=== PATIENT | male | born 1930 | race Caucasian/White ===

== ENCOUNTER 2016-07-26 01:59 | Inpatient (IN) | payer MEDICARE, OTHER ==
--- NOTE | ~2016-07-26 | CT71 ---
[facility] A Service of [facility] & [facility] RADIOLOGY TEXT RESULTS PATIENT: WILIAN MAYBERRY LOCATION: [facility] 563-01 : 29 UNIT #: [id number] AGE: [address]: Jose Manuel Ware MD SEX: M ORDER DR: [id number] [facility] [address] [place], [place] [address] [id number] I MR#: [id number] Acc #: [id number] NAME: WILIAN MAYBERRY : 1930 SEX: M STUDY DATE/TIME: 07/27/2016 12:39 UNIT: [facility] ROOM: [facility] STUDY DESCRIPTION: CT Head Wo Contrast Attending Physician: Jose Manuel Ware M.D. Ordering Physician: Jose Manuel Ware M.D. MEDICAL IMAGING REPORT This report is preliminary unless electronic signature is present EXAM CT of the head with contrast INDICATION Confusion starting this morning. Patient apparently fell last night and there is difficulty rousing him. TECHNIQUE Axial CT images were obtained from the vertex of the skull through the skull base. No intravenous contrast was administered. This CT exam was performed with one or more of the following radiation dose reduction techniques: automatic exposure control, adjustment of mA and/or kV according to patient size, and iterative reconstruction. FINDINGS No acute intracranial hemorrhage is identified. There is diffuse cerebral atrophy with compensatory ventricular dilatation which is in keeping with the age of 85. Patient does have some basal ganglia calcifications but I do not see any focal areas of decreased attenuation. Atherosclerotic involvement of the cavernous carotid and basilar arteries is noted. There is a soft tissue mass seen within the nasal cavity, that is relatively homogeneous in appearance on this unenhanced examination. It measures up to 2.8 x 1.7 cm and extends into the left ethmoid sinus, there is some mild mucosal thickening seen within the maxillary sinuses. Mastoid air cells appear clear. Additional mucosal thickening is seen within the sphenoid sinuses. IMPRESSION 1. No acute intracranial process identified. Specifically, there is no evidence of acute hemorrhage, mass lesion, or acute infarct. 2. This patient does have a soft tissue mass identified within the left nasal cavity extending up into the left ethmoid sinus. It measures up to 2.8 x 1.7 cm and is indeterminate on this unenhanced STS. [facility] A Service of [facility] RADIOLOGY TEXT RESULTS PATIENT: WILIAN MAYBERRY LOCATION: [facility] 563-01 : 29 UNIT #: [id number] AGE: [address]: Jose Manuel Ware MD SEX: M ORDER DR: examination. Further evaluation with CT of the head and neck with contrast is recommended. Dictated by... Miriam Pink M.D. THIS IS AN ELECTRONICALLY VERIFIED REPORT Miriam Pink M.D. at 08/02/2016 1:15 PM AFF/aa TD: 07/27/2016 14:09 JOB #: [id number] MEDICAL IMAGING REPORT COPY
--- NOTE | ~2016-07-26 | CR72 ---
[facility] A Service of [facility] RADIOLOGY TEXT RESULTS PATIENT: WILIAN MAYBERRY LOCATION: [facility] 56- : 29 UNIT #: [id number] AGE: [address]: Jose Manuel Ware MD SEX: M ORDER DR: [id number] [facility] [address]. [place], [place] [address] [id number] I MR#: [id number] Acc #: [id number] NAME: WILIAN MAYBERRY. : 1930 SEX: M STUDY DATE/TIME: 07/28/2016 5:16 UNIT: [facility] ROOM: [facility] STUDY DESCRIPTION: CR Chest Single View Portable Attending Physician: Jose Manuel Ware M.D. Ordering Physician: Jaime Ortega MEDICAL IMAGING REPORT This report is preliminary unless electronic signature is present EXAM AP portable chest date 07/28/2016 05:16 HISTORY Pneumonia. Cough. Congestion. Body aches. Symptoms began approximately 1 week ago. COMPARISON AP portable chest 07/26/2016. CT chest 07/26/2016. FINDINGS Stable cardiac enlargement with median sternotomy. Left chest wall pacemaker leads appear unchanged. Airspace disease throughout the periphery of the right mid, upper and lower lung zones and within the left base with probable trace bilateral pleural effusions, without significant change. The left chest wall pacemaker is stable. IMPRESSION 1. Airspace disease throughout the periphery the right lung and within the left lower lobe and probable small bilateral pleural effusions, without significant change from 07/26/2016. 2. Stable cardiomegaly and CABG. Dictated by... Alize Hurley M.D. THIS IS AN ELECTRONICALLY VERIFIED REPORT Alize Hurley M.D. at 07/29/2016 9:59 PM LLH/rnr TD: 07/28/2016 23:45 JOB #: [id number] [facility] A Service of [facility] RADIOLOGY TEXT RESULTS PATIENT: WILIAN MAYBERRY LOCATION: [facility] 563-01 : 29 UNIT #: [id number] AGE: [address]: Jose Manuel Ware MD SEX: M ORDER DR: MEDICAL IMAGING REPORT COPY
--- NOTE | ~2016-07-26 | CO ---
Unit #: [id number] #: [id number] Patient: WILIAN MAYBERRY [id number] [facility]. [place], [place] [address] [id number] I MR#: [id number] NAME: WILIAN MAYBERRY ROOM: 563 Age: 85 Sex: M Admission Date: 07/26/2016 : 1930 Attending Physician: Jose Manuel Ware M.D. Consultation Date: 07/27/2016 CONSULTATION REPORT HISTORY OF PRESENT ILLNESS This is an 85-year-old gentleman, who developed symptoms of the flu, was seen in ER 1 week ago and was given Tamiflu. The patient apparently took the entire amount the same day and then he was seen in [facility] where he was given Levaquin for suspected post flu pneumonia. The patient presented now to the [facility] ER with atrial fibrillation with RVR. Chest x-ray shows right-sided infiltrates. Flu swab continues to be positive. The patient is also hyponatremic likely dehydrated. The patient was given Cardizem and given Rocephin and azithromycin. The patient was later started on vancomycin for probable staph. The patient has a history of ischemic cardiomyopathy with ejection fraction 20%, atrial fibrillation, status post pacemaker. REVIEW OF SYSTEMS The patient is somewhat confused and is unable to give review of systems, but complained significantly of Valerio catheter and the need to urinate. PAST MEDICAL HISTORY Significant for ischemic cardiomyopathy with ejection fraction 20%, status post CABG, atrial fibrillation, sick sinus syndrome, permanent pacemaker, anticoagulated and on Coumadin. The patient has a history of hypertension. The patient has a history of an appendectomy. ALLERGIES The patient has no known drug allergies. HOME MEDICATIONS Includes 5 mg Coumadin daily, aspirin 81 mg daily, Tamiflu 75 mg daily for one more day, p.r.n. Zofran, Toprol-XL 100 mg q.a.m., Levaquin 500 mg daily, Tessalon Perles t.i.d. as needed. FAMILY HISTORY Nonsignificant. SOCIAL HISTORY The patient lives alone. Lifelong nonsmoker. No history of alcohol. PHYSICAL EXAMINATION VITAL SIGNS: T-current 97.5, pulse 92, respiratory rate 20, blood pressure 153/109, saturating 94% on 2 L nasal cannula. HEENT: Extraocular movements are intact. Pupils are equal, round, and reactive to light. NECK: Shows 17 inches circumference. Mild accessary muscle use. No lymphadenopathy. Unit #: [id number] #: [id number] Patient: WILIAN MAYBERRY CARDIOVASCULAR: Regular rate. No gallop. ABDOMEN: Soft, nontender, and nondistended. EXTREMITIES: Shows no evidence of edema. DIAGNOSTIC STUDIES LABORATORY RESULTS: Sodium 123, potassium 5.4, BUN and creatinine 35/0.8, albumin 3.2, bilirubin total 3.3. AST and ALT 71 and 46, alkaline phosphatase 100. CO2 of 20. The blood gas; 7.35, 36, and 78. Ammonia is less than 9. ASSESSMENT AND PLAN 1. Altered mental status likely secondary to infection. The patient is confused. We will try to get a sitter in to stay with patient. 2. Right-sided pneumonia. I suspect this is post influenza pneumonia big concern for staph. Therefore, the patient is on vancomycin, Rocephin, and on azithromycin. If the patient does not improve, we will plan on doing bronchoscopy early in the week. 3. Urinary tract infection. Culture pending. Mild elevation in leukocyte esterase, but there is nitrite positive. 4. Pulmonary toilet on flutter valve. 5. Atrial fibrillation. The patient is on Cardizem and is being rate controlled. Infection hopefully is causing this and the patient will improve once the pneumonia has decreased. Thank you very much for this consult and allowing us to participate in the care of this patient. Please page me at [phone] if you have any questions. Dictated by... Isaiah Gustafson/yumiko TD: 07/28/2016 01:24 JOB #: [id number] CONSULTATION REPORT X Jaime Ortega MD CONSULTATION REPORT
--- NOTE | ~2016-07-26 | CR72 ---
[facility] A Service of [facility] & [facility] RADIOLOGY TEXT RESULTS PATIENT: WILIAN MAYBERRY LOCATION: [facility] 563- : 29 UNIT #: [id number] AGE: [address]: Jose Manuel Ware MD SEX: M ORDER DR: [id number] I MR#: [id number] Acc #: [id number] NAME: WILIAN MAYBERRY. : 1930 SEX: M STUDY DATE/TIME: 07/26/2016 01:44 UNIT: [facility] ROOM: [facility] STUDY DESCRIPTION: CR Chest Single View Portable Attending Physician: Marixa Bunn M.D. Ordering Physician: Jose Herrera M.D. MEDICAL IMAGING REPORT This report is preliminary unless electronic signature is present. EXAM Chest x-ray, 07/26 at 01:44 INDICATION Cough, congestion and body aches for 1 week. FINDINGS AP portable chest is compared with 03/11/2007. The heart is enlarged status post CABG. There is some apparent chronic scarring at the left lung base. There is a component of chronic pleural fluid or pleural scarring on the right. However, there are infiltrates in the right lbt-nl-oeqsc lung which could reflect pneumonia. Continued radiographic followup is recommended. There is no pneumothorax. Dictated by... Ranjeet Mcgowan Jr., M.D. THIS IS AN ELECTRONICALLY VERIFIED REPORT Ranjeet Mcgowan Jr., M.D. at 07/26/2016 10:02 PM MARIE/serenity TD: 07/26/2016 08:02 JOB #: [id number] MEDICAL IMAGING REPORT
--- NOTE | ~2016-07-26 | DS ---
Unit #: [id number] #: [id number] Patient: WILIAN MAYBERRY [id number] [address] [id number] I MR#: [id number] NAME: WILIAN MAYBERRY. ROOM: 563 Age: 85 Sex: M Admission Date: 07/26/2016 : 1930 Discharge Date: 07/31/2016 Attending Physician: Jose Manuel Ware M.D. DISCHARGE SUMMARY CONSULTANTS 1. Dr. Ortega. 2. Dr. Bruno. ADMITTING DIAGNOSIS Influenza pneumonia. FURTHER DIAGNOSES 1. Atrial fibrillation with rapid ventricular response. 2. Hyponatremia. 3. Hyperbilirubinemia. 4. Ischemic cardiomyopathy with an ejection fraction of 20%. 5. Status post coronary artery bypass graft. 6. History of hypertension. 7. History of appendectomy. PROCEDURES DONE . HISTORY OF PRESENT ILLNESS The patient is an 85-year-old gentleman with multiple medical problems, including ischemic cardiomyopathy with an EF of 20%, status post CABG, history of A fib. He presented from [facility] Emergency Room for pneumonia. HOSPITAL COURSE He was diagnosed with influenza A pneumonia. Before coming to the hospital, he was diagnosed with influenza A pneumonia, and he took Tamiflu prior to coming to the hospital. Apparently, according to his daughter, he took 5 Tamiflu tablets in one day. In the initial evaluation his bilirubin was high up to 6, and sodium was low at 118. In the hospital course he was seen by renal. We stopped the Tamiflu, as he got an excess dose of Tamiflu. His bilirubin improved and trended down to 1.4 on the day of discharge. His sodium started to improve, and it improved. Neurologically he was very confused initially, thought to be metabolic encephalopathy. Slowly his neurological function improved. He is alert and appropriate at this time. I spoke with his daughter at the bedside, and the patient and his daughter are agreeable to go to rehab. Discussed with the case assembler. She will arrange for rehab and will transfer the patient to rehab. PHYSICAL EXAMINATION ON THE DAY OF DISCHARGE Unit #: [id number] #: [id number] Patient: WILIAN MAYBERRY VITAL SIGNS: Temperature 97.8, pulse rate 107, respiratory rate 18, blood pressure 127/73. GENERAL: The patient is alert and oriented x3, lying in bed, no acute distress. HEENT: Normocephalic, atraumatic. No icterus. PERRLA. Extraocular muscles are intact. NECK: Supple. No JVD. HEART: S1, S2. Irregular. CHEST: Bilateral equal air entry. Clear to auscultation. ABDOMEN: Soft, nontender. EXTREMITIES: No edema. Normal pulses. DISCHARGE MEDICATIONS 1. Zithromax 500 mg p.o. daily for 2 more days until August 01, 2016. 2. Coumadin 5 mg, targeting an INR between 2 and 3. 3. Zofran 4 mg q.4 p.r.n. 4. Tessalon Perles 100 mg p.o. t.i.d. 5. Metoprolol 50 mg p.o. q.8 hours. 6. Bisacodyl 5 mg p.o. p.r.n. 7. Laxative p.r.n. 8. Lasix 20 mg p.o. b.i.d. 9. Singulair 10 mg daily. 10. Florastor 250 mg p.o. b.i.d. 11. Aspirin 82 mg daily. 12. KCl 20 mEq p.o. daily. FOLLOWUP He is instructed to follow up with his primary care in 1-2 weeks. NOTE: Total time spent on the discharge is 35 minutes. Dictated by..Isaiah He/mary ellen TD: 07/31/2016 11:48 JOB #: [id number] DISCHARGE SUMMARY X X DISCHARGE SUMMARY
--- NOTE | ~2016-07-26 | CR63 ---
[facility] A Service of [facility] & [facility] RADIOLOGY TEXT RESULTS PATIENT: WILIAN MAYBERRY LOCATION: [facility] 563 : 29 UNIT #: [id number] AGE: [address]: Jose Manuel Ware MD SEX: M ORDER DR: [id number] [facility] [address] [place], [place] [address] [id number] I MR#: [id number] Acc #: [id number] NAME: WILIAN MAYBERRY. : 1930 SEX: M STUDY DATE/TIME: 07/28/2016 9:14 UNIT: [facility] ROOM: [facility] STUDY DESCRIPTION: CR Chest 2 View Attending Physician: Jose Manuel Ware M.D. Ordering Physician: Tk Tijerina M.D. MEDICAL IMAGING REPORT This report is preliminary unless electronic signature is present EXAM PA and lateral chest INDICATIONS 85-year-old male with cough, congestion for 1.5 weeks and pneumonia. Compared with earlier today. FINDINGS Stable consolidation in the right lung consistent with pneumonia. Stable atelectasis or consolidation in the left base. Cardiomegaly. IMPRESSION No significant change. Stable right lung consolidation consistent with pneumonia and consolidation or atelectasis in the left base. Dictated by... Jerry Jennings M.D. THIS IS AN ELECTRONICALLY VERIFIED REPORT Jerry Jennings M.D. at 07/29/2016 10:42 AM KARLA/sophia TD: 07/29/2016 01:45 JOB #: [id number] MEDICAL IMAGING REPORT COPY
--- NOTE | ~2016-07-26 | CT57 ---
[facility] A Service of [facility] & [facility] RADIOLOGY TEXT RESULTS PATIENT: WILIAN MAYBERRY LOCATION: [facility] 563-01 : 29 UNIT #: [id number] AGE: [address]: Jose Manuel Ware MD SEX: M ORDER DR: [id number] [facility] [address] [place], [place] [address] [id number] I MR#: [id number] Acc #: [id number] NAME: WILIAN MAYBERRY. : 1930 SEX: M STUDY DATE/TIME: 07/26/2016 9:39 UNIT: [facility] ROOM: [facility] STUDY DESCRIPTION: CT Chest Wo Cont Attending Physician: Jose Manuel Ware M.D. Ordering Physician: Marixa Bunn M.D. MEDICAL IMAGING REPORT This report is preliminary unless electronic signature is present EXAM CT chest without contrast INDICATIONS Pneumonia. Jaundice. Generalized abdominal pain for [address] of the chest without contrast. Coronal and sagittal reconstructions were obtained. This CT exam was performed with one or more of the following radiation dose reduction techniques: automatic exposure control, adjustment of mA and/or kV according to patient size, and iterative reconstruction. COMPARISON Chest radiograph dated 07/26/2016 and 03/11/2007 FINDINGS There is a small loculated pleural effusion in the posterior left hemithorax. This results in a curvilinear area of consolidation in the left lower lobe with some associated volume loss. This has appearance most typical for a rounded pneumonia, however this should be followed. This area measures 7.1 x 4.1 cm. There is also some areas of ground-glass attenuation within the lateral and posterior aspect of the right upper lobe most consistent with acute pneumonia. There is some atelectasis in the right lung base. Small loculated right pleural effusion is noted. There is diffuse pleural thickening in these areas. There is some chronic interstitial thickening in both lungs. Central airways are patent. There is generalized mediastinal lymphadenopathy. An AP window lymph node measures 2.2 x 1.8 cm. There is a precarinal lymph node measuring 1.2 cm short axis. The heart is enlarged. No pericardial effusion. The thoracic aorta is STS. [facility] A Service of [facility] & [facility] RADIOLOGY TEXT RESULTS PATIENT: WILIAN MAYBERRY LOCATION: [facility] 563-01 : 29 UNIT #: [id number] AGE: [address]: Jose Manuel Ware MD SEX: M ORDER DR: normal in caliber. Please refer to separately dictated report for details on the abdomen. IMPRESSION 1. Right upper lobe pneumonia. 2. Small loculated pleural effusions in the posterior aspect of both hemithoraces. This results in some atelectasis in the right lower lobe and a rounded masslike opacity in the left lower lobe which has appearance most typical for round atelectasis. Given the rounded configuration this should be followed. 3. Enlarged mediastinal lymph nodes are probably reactive due to the above infectious process, however, should be followed. Dictated by... Jnoo Martinez M.D. THIS IS AN ELECTRONICALLY VERIFIED REPORT Jono Martinez M.D. at 07/26/2016 2:04 PM C/tommy TD: 07/26/2016 11:02 JOB #: [id number] MEDICAL IMAGING REPORT COPY
--- NOTE | ~2016-07-26 | CT7 ---
[facility] A Service of [facility] RADIOLOGY TEXT RESULTS PATIENT: WILIAN MAYBERRY LOCATION: [facility] 563-01 : 29 UNIT #: [id number] AGE: [address]: Jose Manuel Ware MD SEX: M ORDER DR: [id number] [facility] [address] [place], [place] [address] [id number] I MR#: [id number] Acc #: [id number] NAME: WILIAN MAYBERRY. : 1930 SEX: M STUDY DATE/TIME: 07/26/2016 9:39 UNIT: [facility] ROOM: [facility] STUDY DESCRIPTION: CT Abdomen Wo Cont Attending Physician: Jose Manuel Ware M.D. Ordering Physician: Marixa Bunn M.D. MEDICAL IMAGING REPORT This report is preliminary unless electronic signature is present EXAM CT of the abdomen without contrast INDICATION Jaundice and abdominal pain. This started today. TECHNIQUE Axial CT images were obtained from the dome of the diaphragm through the abdomen. No intravenous contrast material was administered. This CT exam was performed with one or more of the following radiation dose reduction techniques: automatic exposure control, adjustment of mA and/or kV according to patient size, and iterative reconstruction. FINDINGS Patient's CT of the chest will be dictated separately. Liver appears unremarkable. I think the gallbladder is probably surgically absent. Calcified granulomata are seen within the spleen. Stomach and proximal small bowel are within normal limits. Adrenal glands appear normal. Pancreas is mildly atrophic. There are no solid or cystic renal masses and there is no hydronephrosis. There is extensive atherosclerotic involvement of the abdominal aorta which continues into the iliac vessels. I do not see any evidence of mechanical bowel obstruction. Review of bony windows demonstrates old left-sided rib fractures. No aggressive osseous abnormalities are seen. IMPRESSION 1. No acute intraabdominal processes is identified to account for the patient's symptomatology. Solid organs appear unremarkable. I do not see any convincing evidence of mechanical bowel obstruction. [facility] A Service [facility] RADIOLOGY TEXT RESULTS PATIENT: WILIAN MAYBERRY LOCATION: [facility] 563-01 : 29 UNIT #: [id number] AGE: [address]: Jose Manuel Ware MD SEX: M ORDER DR: 2. Please note patient's gallbladder is not identified. I question if perhaps it is surgically absent. Dictated by... Miriam Pink M.D. THIS IS AN ELECTRONICALLY VERIFIED REPORT Miriam Pink M.D. at 07/26/2016 4:18 PM IESHA/serenity TD: 07/26/2016 13:13 JOB #: [id number] MEDICAL IMAGING REPORT COPY
--- NOTE | ~2016-07-26 | HP ---
Unit #: [id number] #: [id number] Patient: WILIAN MAYBERRY [id number] [address] [place], [place] [address] [id number] MR#: [id number] NAME: WILIAN MAYBERRY. ROOM: 563 Age: 85 Sex: M Admission Date: 07/26/2016 : 1930 Attending Physician: Marixa Bunn M.D. HISTORY AND PHYSICAL CHIEF COMPLAINT Influenzae and pneumonia, A-fib with RVR. HISTORY This 85-year-old male with ischemic cardiomyopathy, ejection fraction 20%, status post permanent pacemaker with atrial fibrillation, was transferred from [facility] emergency department for pneumonia. The patient states that he was in his usual state of health until about five or six days ago when he "felt bad." He has been experiencing fevers, sweats, chills along with a deep cough productive of yellow sputum and decreased p.o. intake. He was seen at the [facility] emergency department on 07/21/2016, and was diagnosed with influenzae A. He was given Tamiflu. However, has not improved over the past few days and it appears that he is also taking Levaquin. He presented to [facility] ER last evening in A-fib with RVR. Chest x-ray shows right sided infiltrates. Influenzae swab was positive. The patient was also hyponatremic. In the ER, he was bolused with Cardizem, currently is on 10 mg/hour Cardizem drip. He was given ibuprofen, Rocephin, Zithromax, bolused with IV fluids. PAST MEDICAL HISTORY 1. Ischemic cardiomyopathy, ejection fraction 20%, status post CABG. 2. Atrial fibrillation/sick sinus syndrome with permanent pacemaker in place, anticoagulated on Coumadin. 3. History of hypertension. 4. Appendectomy. ALLERGIES No known drug allergies. MEDICATIONS Home medications listed as: 1. Coumadin 5 mg daily. 2. Aspirin 81 mg daily. 3. Tamiflu 75 mg daily. 4. P.r.n. Zofran. 5. Toprol XL 100 mg q. a.m. 6. Levaquin 500 mg daily. 7. Tessalon Perles there times a day as needed. FAMILY HISTORY Noncontributory given patient's age. Unit #: [id number] #: [id number] Patient: WILIAN MAYBERRY SOCIAL HISTORY The patient lives alone. He is a lifelong nonsmoker, does not drink alcohol. REVIEW OF SYSTEMS Really difficult to obtain as patient, himself, is a poor historian. PHYSICAL EXAMINATION GENERAL APPEARANCE: Jaundiced appearing 85-year-old, mildly obese male, who looks to be somewhat ill. VITAL SIGNS: Temperature 98.2, pulse was as high as about 150, currently is 115, respirations 20, blood pressure 137/88. O2 saturation was 98% on 2 L of oxygen. HEENT: Eyes PERRLA. Extraocular muscles are intact. Scleral icterus is noted. Pharynx is benign. NECK: Supple without adenopathy or thyromegaly. CHEST: Reveals expiratory wheezes bilaterally, particularly on the right with crackles on the right. CARDIAC: Tachy S1 and S2, irregular. ABDOMEN: Bowel sounds are present. No definite hepatosplenomegaly, tenderness or masses. EXTREMITIES: Without edema. Pedal pulses are diminished. NEUROLOGIC EXAM: The patient is awake, alert. He is oriented. His cranial nerves are intact. He has equal strength throughout but is quite weak on exam. SKIN EXAMINATION: Reveals some abrasions over the right hand. DIAGNOSTIC STUDIES LABORATORY: Hematocrit is 42.3. Normal white count and platelet count. INR is 1.4, PTT is 32.1. SMA-12 - glucose 144, BUN 25, sodium 119, bilirubin is 6, up from a bilirubin of 2.7 several days ago. Both indirect and direct are elevated. AST 57, alk. phos. 114, BNP 300, lactic acid 2.6. Troponin is negative. Influenzae swab positive for influenzae A. IMAGING: Chest x-ray shows right mid lower lobe infiltrates consistent with pneumonia. CARDIOVASCULAR: EKG - A-fib, RVR, rate 135. ASSESSMENT 1. Influenzae/pneumonia despite Levaquin and Tamiflu. 2. Chronic atrial fibrillation, now in rapid ventricular response: The patient is status post permanent pacemaker insertion with a subtherapeutic INR. 3. Hypovolemic hyponatremia. 4. Jaundice with benign abdomen. 5. Coronary artery disease, status post coronary artery bypass graft: The patient has ischemic cardiomyopathy, ejection fraction 20% on echo 02/2015 at the [facility]. 6. History of hypertension. PLANS 1. Tamiflu, vancomycin and Zithromax pending cultures. 2. Check CT scan of the chest and abdomen. 3. IV fluids with normal saline. Unit #: [id number] #: [id number] Patient: WILIAN MAYBERRY 4. 50 mg b.i.d. of Lopressor, and see if we can taper the Cardizem drip. The patient usually takes Toprol XL 100 mg q. a.m. but I am unsure if he is actually taking his medicines recently as he has been ill. 5. SCDs for DVT prophylaxis. 6. Daily PT and INR. 7. Check hepatitis profile. 8. If pulmonary consultation is needed, patient has been seen in the past by Dr. Ingram. Dictated by Marixa Bunn M.D. AML/df TD: 07/26/2016 06:19 JOB #: [id number] HISTORY AND PHYSICAL X Marixa Bunn MD X HISTORY AND PHYSICAL
[2016-07-26 01:54] LABS: BASOPHIL% 0.1 % (0-2.5); HEMATOCRIT 42.3 % (38.0-50.0); HEMOGLOBIN 14.4 gm/dL (13.0-16.0); LYMPHOCYTE# 0.5 X10e3 (1.0-3.5); LYMPHOCYTE% 4.8 % (17.0-45.0); MEAN CELL VOLUME 94.6 FL (83-96); MEAN CORPUSCULAR HEMOGLOBIN 32.2 PG (28-34); MEAN PLATELET VOLUME 7.6 FL (6.5-11.5); MONOCYTE# 1.1 X10e3 (0-1.0); MONOCYTE% 11.4 % (3.0-12.0); NEUTROPHIL# 7.9 X10e3 (1.5-7.1); NEUTROPHIL% 83.7 % (40-75); PLATELET COUNT 146 X10e3 (140-420); RED BLOOD COUNT 4.48 X10e (3.90-5.60); RED CELL DISTRIBUTION WIDTH 13.3 % (11.0-15.5); WHITE BLOOD COUNT 9.5 X10e3 (4.0-10.5)
[2016-07-26 01:59] LABS: DIFF IND NO
[~2016-07-26 01:59] MED LIST: ALDACTONE PO; AMIODARONE PO; BP MED; COUMADIN PO; CRESTOR PO; LASIX PO; LISINOPRIL PO; LOPRESSOR PO
[2016-07-26 02:00] LABS: INR 1.4; PROTHROMBIN TIME (PATIENT) 15.7 SECONDS (9.5-12.4)
[2016-07-26 02:06] LABS: POC - CKMB 6.3 ng/mL (0.0-7.9)
[2016-07-26 02:07] LABS: POC - TROPONIN <0.05 ng/mL (<=0.05)
[2016-07-26 02:08] LABS: PARTIAL THROMBOPLASTIN TIME 32.1 SECONDS (25.6-38.1)
[2016-07-26 02:11] LABS: INFLUENZA A POS (NEG); INFLUENZA B NEG (NEG)
[2016-07-26 02:16] LABS: ALBUMIN SERUM 3.6 g/dL (3.5-5.0); ALKALINE PHOSPHATASE 114 U/L (32-92); ALT (SGPT) 40 U/L (10-40); AST (SGOT) 57 U/L (10-42); BILIRUBIN, DIRECT 2.4 mg/dL (0.0-0.2); BILIRUBIN,INDIRECT 3.6 mg/dL (0.0-0.9); BLOOD UREA NITROGEN 25 mg/dL (9-23); BUN/CREATININE RATIO 31.25; CALCIUM SERUM 8.6 mg/dL (8.4-10.2); CARBON DIOXIDE 24 mmol/L (22-31); CHLORIDE 83 mmol/L (100-111); CREATININE SERUM 0.8 mg/dL (0.6-1.4); GLOM FILT RATE Estimated ABOVE60 mL/min (>60); GLUCOSE FASTING 144 mg/dL (70-110); POTASSIUM 4.4 mmol/L (3.5-5.1); PROTEIN TOTAL SERUM 6.8 g/dL (6.0-8.3)
[2016-07-26 02:18] LABS: SODIUM 119 mmol/L (135-145)
[2016-07-26] MEDS ORDERED: BENZONATATE PO (04:14)
[2016-07-26] MEDS ORDERED: METOPROLOL SUC100 MG PO (04:15)
[2016-07-26] MEDS ORDERED: LEVOFLOXACIN500 MG PO (04:15)
[2016-07-26] MEDS ORDERED: ONDANSETRON HCL4 M1 PO (04:16)
[2016-07-26] MEDS ORDERED: TAMIFLU75 M1 PO (04:17)
[2016-07-26] MEDS ORDERED: COUMADIN5 MG PO (04:18)
[2016-07-26] MEDS ORDERED: ASPIRIN EC81 M1 PO (04:19)
[2016-07-26 09:07] LABS: INR 1.2; PROTHROMBIN TIME (PATIENT) 12.9 SECONDS (9.6-11.5)
[2016-07-26 09:37] LABS: BLOOD UREA NITROGEN 25 mg/dL (9-23); BUN/CREATININE RATIO 41.66; CALCIUM SERUM 7.9 mg/dL (8.4-10.2); CARBON DIOXIDE 24 mmol/L (22-31); CHLORIDE 86 mmol/L (100-111); CK TOTAL 200 IU/L (36-174); CREATININE SERUM 0.6 mg/dL (0.6-1.4); GLOM FILT RATE Estimated ABOVE60 mL/min (>60); GLUCOSE FASTING 137 mg/dL (70-110); MAGNESIUM 1.7 mg/dL (1.6-3.0); POTASSIUM 4.4 mmol/L (3.5-5.1)
[2016-07-26 09:59] LABS: THYROID STIMULATING HORMONE 1.29 uIU/ml (0.34-5.60)
[2016-07-26 10:06] LABS: FREE THYROXIN (T4) 1.78 ng/dL (0.58-1.64)
[2016-07-26 10:27] LABS: SODIUM 118 mmol/L (135-145)
[2016-07-26 10:45] LABS: %MB 3.9 % (0.0-4.0); MB 7.8 ng/ml
[2016-07-26 11:54] LABS: URINE SOURCE CLEAN CATCH
[2016-07-26 12:23] LABS: URINE BACTERIA AUWI NEG (NEGATIVE); URINE BLOOD NEG (NEG); URINE COLOR DK YELLOW; URINE GLUCOSE NEG (NEG); URINE KETONE NEG (NEG); URINE LEUKOCYTE ESTERASE TRACE (NEG); URINE NITRATE POS (NEG); URINE PROTEIN 1+ (NEG); URINE SPECIFIC GRAVITY 1.024 (1.003-1.035); URINE SQUAMOUS EPITHELIAL CELL FEW /[HPF]; UWBCS1 AUWI 0-2 (0-5)
[2016-07-26 12:26] LABS: CULTURE INDICATED? NO; URINE APPEARANCE CLEAR
[2016-07-26 12:27] LABS: URINE BILIRUBIN NEG (NEG)
[2016-07-27 07:04] LABS: HEMATOCRIT 39.8 % (38.0-50.0); HEMOGLOBIN 13.4 gm/dL (13.0-16.0); MEAN CELL VOLUME 93.5 FL (83-96); MEAN CORPUSCULAR HEMOGLOBIN 31.4 PG (28-34); MEAN CORPUSCULAR HGB CONC 33.6 g/dL (30-36); MEAN PLATELET VOLUME 8.3 FL (6.5-11.5); RED BLOOD COUNT 4.26 X10e (3.90-5.60); RED CELL DISTRIBUTION WIDTH 13.3 % (11.0-15.5); WHITE BLOOD COUNT 12.1 X10e3 (4.0-10.5)
[2016-07-27 07:16] LABS: INR 1.2; PROTHROMBIN TIME (PATIENT) 12.7 SECONDS (9.6-11.5)
[2016-07-27 07:41] LABS: ALBUMIN SERUM 3.2 g/dL (3.5-5.0); ALKALINE PHOSPHATASE 100 U/L (32-92); ALT (SGPT) 46 U/L (10-40); AST (SGOT) 71 U/L (10-42); BILIRUBIN,TOTAL 3.3 mg/dL (0.2-2.0); BLOOD UREA NITROGEN 35 mg/dL (9-23); BUN/CREATININE RATIO 43.75; CALCIUM SERUM 8.2 mg/dL (8.4-10.2); CARBON DIOXIDE 20 mmol/L (22-31); CHLORIDE 89 mmol/L (100-111); CREATININE SERUM 0.8 mg/dL (0.6-1.4); GLOM FILT RATE Estimated ABOVE60 mL/min (>60); GLUCOSE FASTING 137 mg/dL (70-110); POTASSIUM 5.4 mmol/L (3.5-5.1); PROTEIN TOTAL SERUM 6.1 g/dL (6.0-8.3)
[2016-07-27 07:46] LABS: SODIUM 123 mmol/L (135-145)
[2016-07-27 11:31] LABS: ARTERIAL BLD GAS O2 SATURATION 93.8 % (90.0-100.0); ARTERIAL BLOOD GAS CARBOXY HB 0.7 %sat (0.0-9.0); ARTERIAL BLOOD GAS HCO3 20.2 mmol/L; ARTERIAL BLOOD GAS MET HB 0.5 %sat (0.0-2.0); ARTERIAL BLOOD GAS PCO2 36.2 mmHg (35.0-45.0); ARTERIAL BLOOD GAS pH 7.356 (7.350-7.450)
[2016-07-27 11:32] LABS: ARTERIAL BLOOD GAS ALLEN TEST NORMAL; ARTERIAL BLOOD GAS ART SITE LEFT RADIAL; ARTERIAL BLOOD GAS DELIVERY NASAL CANNULA; ARTERIAL BLOOD GAS PO2 78.1 mmHg (80.0-100); ARTERIAL DRAW? YES
[2016-07-28 06:18] LABS: HEMATOCRIT 38.7 % (38.0-50.0); HEMOGLOBIN 13.3 gm/dL (13.0-16.0); MEAN CELL VOLUME 93.4 FL (83-96); MEAN CORPUSCULAR HEMOGLOBIN 32.1 PG (28-34); MEAN CORPUSCULAR HGB CONC 34.4 g/dL (30-36); MEAN PLATELET VOLUME 8.2 FL (6.5-11.5); RED BLOOD COUNT 4.14 X10e (3.90-5.60); WHITE BLOOD COUNT 10.6 X10e3 (4.0-10.5)
[2016-07-28 06:32] LABS: INR 1.2; PROTHROMBIN TIME (PATIENT) 12.6 SECONDS (9.6-11.5)
[2016-07-28 06:50] LABS: ALBUMIN SERUM 2.9 g/dL (3.5-5.0); ALKALINE PHOSPHATASE 88 U/L (32-92); ALT (SGPT) 47 U/L (10-40); AST (SGOT) 65 U/L (10-42); BILIRUBIN,TOTAL 2.2 mg/dL (0.2-2.0); BLOOD UREA NITROGEN 24 mg/dL (9-23); CARBON DIOXIDE 22 mmol/L (22-31); CHLORIDE 89 mmol/L (100-111); CREATININE SERUM 0.6 mg/dL (0.6-1.4); GLOM FILT RATE Estimated ABOVE60 mL/min (>60); GLUCOSE FASTING 105 mg/dL (70-110); POTASSIUM 4.4 mmol/L (3.5-5.1); PROTEIN TOTAL SERUM 5.6 g/dL (6.0-8.3)
[2016-07-28 06:52] LABS: SODIUM 121 mmol/L (135-145)
[2016-07-28 11:25] LABS: THYROID STIMULATING HORMONE 1.61 uIU/ml (0.34-5.60)
[2016-07-28 11:25] LABS: OSMOLALITY,URINE 313 mOsmo/kg (250-900)
[2016-07-28 11:28] LABS: SODIUM URINE RANDOM <10 mmol/L
[2016-07-28 11:31] LABS: FREE THYROXIN (T4) 1.64 ng/dL (0.58-1.64)
[2016-07-29 05:39] LABS: HEMATOCRIT 40.4 % (38.0-50.0); HEMOGLOBIN 13.5 gm/dL (13.0-16.0); MEAN CELL VOLUME 94.5 FL (83-96); MEAN CORPUSCULAR HEMOGLOBIN 31.5 PG (28-34); MEAN CORPUSCULAR HGB CONC 33.4 g/dL (30-36); MEAN PLATELET VOLUME 7.6 FL (6.5-11.5); RED BLOOD COUNT 4.28 X10e (3.90-5.60); RED CELL DISTRIBUTION WIDTH 13.4 % (11.0-15.5)
[2016-07-29 06:09] LABS: ALBUMIN SERUM 2.6 g/dL (3.5-5.0); ALKALINE PHOSPHATASE 88 U/L (32-92); ALT (SGPT) 46 U/L (10-40); AST (SGOT) 59 U/L (10-42); BILIRUBIN,TOTAL 1.9 mg/dL (0.2-2.0); BLOOD UREA NITROGEN 16 mg/dL (9-23); CALCIUM SERUM 8.2 mg/dL (8.4-10.2); CARBON DIOXIDE 28 mmol/L (22-31); CHLORIDE 92 mmol/L (100-111); CREATININE SERUM 0.8 mg/dL (0.6-1.4); GLOM FILT RATE Estimated ABOVE60 mL/min (>60); GLUCOSE FASTING 91 mg/dL (70-110); POTASSIUM 4.1 mmol/L (3.5-5.1); PROTEIN TOTAL SERUM 5.3 g/dL (6.0-8.3); SODIUM 127 mmol/L (135-145)
[2016-07-29 06:34] LABS: INR 1.3; PROTHROMBIN TIME (PATIENT) 13.6 SECONDS (9.6-11.5)
[2016-07-30 00:37] LABS: HA AB IGM (HEPPAN) Nonreactive (Nonreactive); HB CORE AB IGM (HEPPAN) Nonreactive (Nonreactive); HB S AG (HEPPAN) Nonreactive (Nonreactive); HEP C AB (HEPPAN) Nonreactive (Nonreactive); HEP C AB SIGNAL TO CUTOFF 0.02 ratio (<1.00)
[2016-07-30 06:49] LABS: HEMATOCRIT 39.9 % (38.0-50.0); HEMOGLOBIN 13.4 gm/dL (13.0-16.0); MEAN CELL VOLUME 94.6 FL (83-96); MEAN CORPUSCULAR HEMOGLOBIN 31.9 PG (28-34); MEAN CORPUSCULAR HGB CONC 33.7 g/dL (30-36); MEAN PLATELET VOLUME 7.4 FL (6.5-11.5); RED BLOOD COUNT 4.22 X10e (3.90-5.60); RED CELL DISTRIBUTION WIDTH 13.3 % (11.0-15.5)
[2016-07-30 07:27] LABS: ALBUMIN SERUM 2.6 g/dL (3.5-5.0); ALKALINE PHOSPHATASE 83 U/L (32-92); ALT (SGPT) 41 U/L (10-40); AST (SGOT) 47 U/L (10-42); BILIRUBIN,TOTAL 1.6 mg/dL (0.2-2.0); BLOOD UREA NITROGEN 16 mg/dL (9-23); CALCIUM SERUM 8.2 mg/dL (8.4-10.2); CARBON DIOXIDE 32 mmol/L (22-31); CHLORIDE 93 mmol/L (100-111); CREATININE SERUM 0.8 mg/dL (0.6-1.4); GLOM FILT RATE Estimated ABOVE60 mL/min (>60); GLUCOSE FASTING 92 mg/dL (70-110); POTASSIUM 3.7 mmol/L (3.5-5.1); PROTEIN TOTAL SERUM 5.3 g/dL (6.0-8.3); SODIUM 132 mmol/L (135-145)
[2016-07-31 06:42] LABS: BASOPHIL% 0.4 % (0-2.5); EOSINOPHIL# 0.2 X10e3 (0-0.7); EOSINOPHIL% 1.9 % (0.0-7.0); HEMATOCRIT 41.7 % (38.0-50.0); HEMOGLOBIN 14.1 gm/dL (13.0-16.0); LYMPHOCYTE# 0.8 X10e3 (1.0-3.5); LYMPHOCYTE% 8.5 % (17.0-45.0); MEAN CELL VOLUME 94.7 FL (83-96); MEAN CORPUSCULAR HEMOGLOBIN 31.9 PG (28-34); MEAN CORPUSCULAR HGB CONC 33.7 g/dL (30-36); MEAN PLATELET VOLUME 7.1 FL (6.5-11.5); MONOCYTE% 11.3 % (3.0-12.0); NEUTROPHIL# 7.1 X10e3 (1.5-7.1); NEUTROPHIL% 77.9 % (40-75); PLATELET COUNT 286 X10e3 (140-420); RED BLOOD COUNT 4.41 X10e (3.90-5.60); RED CELL DISTRIBUTION WIDTH 13.4 % (11.0-15.5); WHITE BLOOD COUNT 9.1 X10e3 (4.0-10.5)
[2016-07-31 06:43] LABS: DIFF IND YES
[2016-07-31 07:18] LABS: BLOOD UREA NITROGEN 17 mg/dL (9-23); BUN/CREATININE RATIO 21.25; CALCIUM SERUM 8.3 mg/dL (8.4-10.2); CARBON DIOXIDE 32 mmol/L (22-31); CHLORIDE 94 mmol/L (100-111); CREATININE SERUM 0.8 mg/dL (0.6-1.4); GLOM FILT RATE Estimated ABOVE60 mL/min (>60); GLUCOSE FASTING 107 mg/dL (70-110); MAGNESIUM 1.8 mg/dL (1.6-3.0); POTASSIUM 3.6 mmol/L (3.5-5.1); SODIUM 134 mmol/L (135-145)
[2016-07-31 07:44] LABS: PLATELET ESTIMATE NORMAL (NORMAL)
== END 2016-07-31 14:07 | DRG 193 ==
LOC: SED 01:59 → SEDOF 03:07 → C5C 06:00
PROVIDERS: Emergency Medicine; Internal Medicine; Internal Medicine Nephrology
DX: J11.00 Influenza due to unidentified influenza virus with unspecified type of pneumonia (principal); G93.41 Metabolic encephalopathy; I48.2 Chronic atrial fibrillation; E87.1 Hypo-osmolality and hyponatremia; R17 Unspecified jaundice; I11.0 Hypertensive heart disease with heart failure; I50.22 Chronic systolic (congestive) heart failure; E86.0 Dehydration; I25.5 Ischemic cardiomyopathy; N39.0 Urinary tract infection, site not specified; I25.10 Atherosclerotic heart disease of native coronary artery without angina pectoris; E66.9 Obesity, unspecified; Z95.1 Presence of aortocoronary bypass graft; Z95.0 Presence of cardiac pacemaker
CPT/HCPCS: 36600; 70450; 71010; 71020; 71250; 74150; 80048; 80053; 80074; 80076; 80202; 81003; 82140; 82308; 82533; 82550; 82553; 82803; 83605; 83735; 83874; 83880; 83935; 84300; 84439; 84443; 84484; 85025; 85027; 85610; 85730; 87040; 87070; 87086; 87205; 87804; 94640; 94760; 96365; 96366; 96375; 97110; 97116; 97162; 97165; 97530; 97535; 99291; G0238; G8978-GP; G8979-GP; G8987-GO; G8988-GO; J0456; J0696; J1650; J1940; J3370